=== PATIENT | female | born 1990 | race Two or more races ===

== ENCOUNTER 2022-10-24 18:24 | Emergency (ER) | payer OTHER ==
[2022-10-24 18:48] VITALS: RESP 18; TEMP 98.2; BMI 28.6
[2022-10-24] MEDS ORDERED: SODIUM CHLORIDE 0.9% 500 ML INFUS.BAG IV ONE (21:38)
[2022-10-24 22:27] LABS: BASO % 0.9 % (0-2.0); EOS % 5.2 % (0-4.5); HEMATOCRIT 37.1 % (32.4-45.2); HEMOGLOBIN 12.5 GM/dL (10.7-15.3); LYMPH % 25.3 % (8-40); MCH 27.5 pg (25.7-33.7); MCHC 33.8 g/dl (32.0-36.0); MEAN CELL VOLUME 81.2 fl (80-96); MEAN PLT VOLUME 7.9 fl (7.5-11.1); MONO % 6.6 % (3.8-10.2); PLATELET COUNT 344 10^3/uL (134-434); RBC 4.56 M/mm3 (3.60-5.2); RDW 13.8 % (11.6-15.6)
[2022-10-24 22:43] LABS: URINE COLOR RED
[2022-10-24 22:45] LABS: URINE APPEARANCE TURBID
[2022-10-24 22:46] LABS: URINE BILIRUBIN MODERATE (NEGATIVE); URINE GLUCOSE (UA) NEGATIVE (NEGATIVE)
[2022-10-24 22:47] LABS: EPI CELLS 12 /uL (0-25.1); HYALINE CASTS 5 /uL (0-3.1); URINE BACTERIA 67 /uL (0-1359); URINE PROTEIN 100 (NEGATIVE); URINE RBC 642 /uL (0-23.9); URINE WBC 2 /uL (0-25.8)
[2022-10-24 22:51] LABS: CALCIUM 9.2 mg/dL (8.5-10.1)
[2022-10-24 22:52] LABS: ALBUMIN 3.8 g/dl (3.4-5.0); BLOOD UREA NITROGEN 11.4 mg/dL (7-18)
[2022-10-24 22:55] LABS: CREATININE 0.6 mg/dL (0.55-1.3)
[2022-10-24 22:57] LABS: BILIRUBIN,TOTAL 0.3 mg/dL (0.2-1); TOT PROT 7.2 g/dl (6.4-8.2)
[2022-10-25 02:09] VITALS: BP 126/75; PULSE 102
== END 2022-10-25 02:13 | disposition home or self-care (01) ==
LOC: JER 18:24
DX: O03.9 Complete or unspecified spontaneous abortion without complication (principal); Z3A.09 9 weeks gestation of pregnancy
CPT/HCPCS: 36415; 76801-TC; 80053; 81003; 84702; 85025; 86850; 86900; 86901; 87086; 87186; 93005; 93010; 99284-25

== ENCOUNTER 2022-10-26 12:12 | Emergency (ER) | payer OTHER ==
[2022-10-26 12:30] VITALS: BP 115/77; PULSE 81; RESP 18; TEMP 98; BMI 28.6
== END 2022-10-26 15:04 | disposition home or self-care (01) ==
LOC: JER 12:12 → JERFT 12:12
DX: Z33.2 Encounter for elective termination of pregnancy (principal)
CPT/HCPCS: 36415; 84702; 99283-25